=== PATIENT | male | born 1935 | race Caucasian/White ===

== ENCOUNTER → 2016-11-21 | Outpatient (CLI) | payer MEDICARE, BC | END | disposition home or self-care (01) | LOC: CDC 11:42 | DX: R94.31 Abnormal electrocardiogram [ECG] [EKG] (principal); K42.9 Umbilical hernia without obstruction or gangrene | CPT/HCPCS: 93000 ==

== ENCOUNTER 2016-11-29 05:38 | Day surgery (SDC) | payer BC ==
[~2016-11-29] VITALS: Ht 165.1 cm; Wt 106.5 kg
[~2016-11-29 05:38] MED LIST: APRESOLINE50 MG PO; CATAPRES0.1 MG PO; COZAAR100 MG PO; CYANOCOBALAM1000 MCG PO; ERGOCALCIF50000 UNIT PO; FISH OIL 1,001000 M2 PO; IMDUR30 MG PO; LASIX40 MG PO; LO-DOSE ASPIRIN81 M2 PO; METOLAZONE2.5 MG PO; NOVOLOG100 UNIT/1 SC; PROCARDIA XL90 MG PO; TOPROL XL50 MG PO; [UNRECOGNIZED DRUG - SUPPLY] MC
[2016-11-29 06:15] LABS: HEMATOCRIT 37.8 % (38.0-50.0); MCH 29.6 PG (29.0-34.0); MCHC 33.9 G/DL (30.0-36.0); MCV 87.5 FL (86-99); MEAN PLAT.VOLUME 11.1 uM^3 (9.0-12.4); PLATELET COUNT 247 K/uL (156-360); RBC DIS.WIDTH-CV 13.5 % (11.8-14.6); RBC DIS.WIDTH-SD 43.2 % (39-53); RED BLOOD COUNT 4.32 M/uL (4.00-5.50); WHITE BLOOD COUNT 9.7 K/uL (4.1-10.2)
[2016-11-29 06:35] LABS: ANION GAP 14 MEQ/L (2-14); CHLORIDE 102 MEQ/L (99-109); POTASSIUM 4.5 MEQ/L (3.7-5.4); SAMPLE HEMOLYSIS CHECK 0; SAMPLE ICTERIC CHECK 0; SAMPLE LIPEMIA CHECK 0; SODIUM 138 MEQ/L (136-147)
[2016-11-29 06:52] LABS: GFR ESTIMATE (CALCULATED) 15 mL/min/; GLUCOSE 203 mg/dL (70-99)
[2016-11-29 06:53] LABS: UREA NITROGEN (BUN) 101 mg/dL (9-23)
[2016-11-29 07:03] VITALS: BP 140/100
[2016-11-29 09:16] LABS: POINT-OF-CARE METER ID UU13113675; POINT-OF-CARE USER ID ADMSLT55
[2016-11-29 09:35] VITALS: BP 162/72
[2016-11-29 10:22] VITALS: BP 173/74
[2016-11-29 11:10] VITALS: BP 166/75
== END 2016-11-29 11:27 | disposition home or self-care (01) ==
LOC: SDC 05:38 → EDSTATUS 11:00 → 2SOUTH 11:00 → SDC 11:05
PROVIDERS: Surgery
DX: K43.2 Incisional hernia without obstruction or gangrene (principal); N18.6 End stage renal disease; I12.0 Hypertensive chronic kidney disease with stage 5 chronic kidney disease or end stage renal disease; E11.22 Type 2 diabetes mellitus with diabetic chronic kidney disease; I25.2 Old myocardial infarction; Z99.2 Dependence on renal dialysis; Z85.038 Personal history of other malignant neoplasm of large intestine; E78.5 Hyperlipidemia, unspecified; I25.10 Atherosclerotic heart disease of native coronary artery without angina pectoris
CPT/HCPCS: 80048; 82948; 85027; C1750; C1781; J0330; J0690; J2250; J2405; J3010

== ENCOUNTER 2017-05-09 13:49 | Day surgery (SDC) | payer BC ==
[~2017-05-09] VITALS: Ht 172.7 cm; Wt 99.8 kg
[~2017-05-09 13:49] MED LIST changes: +PROCARDIA XL30 MG PO; -[UNRECOGNIZED DRUG - SUPPLY] MC; +[UNRECOGNIZED DRUG - SUPPLY] SQ
[2017-05-09] MEDS ORDERED: TOPROL XL50 MG PO (14:38)
[2017-05-09 14:47] LABS: ANION GAP 10 MEQ/L (2-14); CHLORIDE 99 MEQ/L (99-109); POTASSIUM 4.8 MEQ/L (3.7-5.4); SAMPLE HEMOLYSIS CHECK 0; SAMPLE ICTERIC CHECK 0; SAMPLE LIPEMIA CHECK 0; SODIUM 137 MEQ/L (136-147)
[2017-05-09 14:53] LABS: GFR ESTIMATE (CALCULATED) 17 mL/min/; GLUCOSE 157 mg/dL (70-99); UREA NITROGEN (BUN) 35 mg/dL (9-23)
[2017-05-09 14:57] VITALS: BP 181/81
[2017-05-09 15:00] LABS: HEMATOCRIT 40.3 % (38.0-50.0); MCV 91.4 FL (86-99)
[2017-05-09 15:03] LABS: POINT-OF-CARE METER ID UU13113694
[2017-05-09 15:58] LABS: METH RESISTANT S AUREUS PCR NEGATIVE (NEGATIVE)
[2017-05-09 16:00] LABS: PROBE CHECK PASS; SPECIMEN PROCESSING CONTROL PASS
[2017-05-09 18:45] LABS: POINT-OF-CARE METER ID UU13113675
[2017-05-09] MEDS ORDERED: NORCO 5/3251 TABLET PO (19:08)
[2017-05-09 20:23] VITALS: BP 197/86
[2017-05-09 21:11] LABS: POINT-OF-CARE METER ID UU13113694
[2017-05-09 21:23] VITALS: BP 214/96
== END 2017-05-09 22:07 | disposition home or self-care (01) ==
LOC: SDC 13:49 → ENRESERV 21:08 → 2SOUTH 21:09 → ENRESERV 21:45 → 2SOUTH 22:07
PROVIDERS: Surgery
DX: T85.621A Displacement of intraperitoneal dialysis catheter, initial encounter (principal); K66.0 Peritoneal adhesions (postprocedural) (postinfection); I12.9 Hypertensive chronic kidney disease with stage 1 through stage 4 chronic kidney disease, or unspecified chronic kidney disease; E11.22 Type 2 diabetes mellitus with diabetic chronic kidney disease; N18.9 Chronic kidney disease, unspecified; Z99.2 Dependence on renal dialysis; Z79.4 Long term (current) use of insulin; Z79.82 Long term (current) use of aspirin; E66.9 Obesity, unspecified; Z68.34 Body mass index [BMI] 34.0-34.9, adult; Z82.49 Family history of ischemic heart disease and other diseases of the circulatory system; Z84.1 Family history of disorders of kidney and ureter; Z80.9 Family history of malignant neoplasm, unspecified; Z88.5 Allergy status to narcotic agent; Z88.8 Allergy status to other drugs, medicaments and biological substances
CPT/HCPCS: 80048; 82948; 85014; 85018; 87641; C1781; G0378; J0131; J0690; J1100; J1815; J2405; J2710; J3010; S0020